=== PATIENT | female | born 1960 | race Caucasian/White ===

== ENCOUNTER 2018-04-26 06:09 | Day surgery (SDC) | payer OTHER ==
[2018-04-26 06:41] VITALS: TEMP 97.5
[2018-04-26] MEDS ORDERED: Propofol 10 mg/ml Inj (20 ML) ONE ×2 (07:57→08:50)
--- NOTE | 2018-04-26 08:40 | CP.SDSHP ---
Same Day Surgery H & P - History Proposed Procedure: EGD+Colonoscopy Pre-Op Diagnosis: Dyspepsia, Screening Colonoscopy - Previous Medical/Surgical History Comments: wnl - Allergies Allergies: Allergies latex Allergy (Verified 10/19/16 11:59) REDNESS Penicillins Allergy (Verified 10/19/16 11:59) RASH tramadol Adverse Reaction (Verified 04/25/18 10:11) DIZZINESS - Physical Exam General Appearance: well Vital Signs: Vital Signs 04/26/18 06:34 Temperature 97.5 F L Pulse Rate 90 Respiratory 18 Rate Blood Pressure 103/74 O2 Sat by Pulse 100 Oximetry Mental Status: Alert & Oriented x3 Neuro: WNL Heart: WNL Lungs: WNL GI: WNL - {Optional Preform as Required} Breast: WNL Abdomen: WNL Rectal: WNL Integument: WNL REGISTERED ACCOUNT ADMINISTRATOR: WNL : WNL Ortho: WNL ENT: WNL - Impression Impression: EGD to assess dyspepsia and screening colonoscopy for malignancy Pt. Evaluated Today:Candidate for Anesthesia & Procedure: Yes - Date & Time Date: 04/26/18 Time: 08:30 Short Stay Discharge - Short Stay Discharge Admitting Diagnosis/Reason for Visit: EPIGASTRIC PAIN, CONSTIPATION, VOMITING, Disposition: HOME/ ROUTINE
[2018-04-26 10:03] VITALS: RESP 15
[2018-04-26 10:35] VITALS: BP 126/70; PULSE 71; O2SAT 98
== END 2018-04-26 10:27 | disposition home or self-care (01) ==
LOC: C.ENDO 06:09
PROVIDERS: ATTEND Internal Medicine Gastroenterology
DX: K29.70 Gastritis, unspecified, without bleeding (principal); K59.01 Slow transit constipation; R11.14 Bilious vomiting; K21.9 Gastro-esophageal reflux disease without esophagitis; K44.9 Diaphragmatic hernia without obstruction or gangrene; K64.8 Other hemorrhoids; K57.90 Diverticulosis of intestine, part unspecified, without perforation or abscess without bleeding; K22.70 Barrett's esophagus without dysplasia
CPT/HCPCS: 43239; 45378; 82948; 88305; 88312; 88313; 88342; J2704

== ENCOUNTER 2018-06-03 11:14 | Emergency (ER) | payer OTHER ==
--- NOTE | 2018-06-03 13:55 | C.PDOC ---
History Of Present Illness 58 y/ female with history of Asthma, DM, High cholesterol and Depression presents to ED with c/o upper abdominal pain radiating to back for 1 year but worsened today. Patient states she had a recent Endoscopy, Colonoscopy and Biopsy, diagnosed with H-Pylori. Patient admits to constipation for 4 days, reports she finished medication given for H-Pylori with no improvement. Patient called Dr. Newsome for no improvement of symptoms and instructed to come to ED. Patient denies fever, chills, blood in stool or any other complaints at this time. Time Seen by Provider: 06/03/18 13:05 Chief Complaint (Nursing): Abdominal Pain History Per: Patient History/Exam Limitations: no limitations Onset/Duration Of Symptoms: Days Current Symptoms Are (Timing): Still Present Location Of Pain/Discomfort: Epigastric Past Medical History Reviewed: Historical Data, Nursing Documentation, Vital Signs Vital Signs: Last Vital Signs Temp 97 F L 06/03/18 11:30 Pulse 98 H 06/03/18 11:30 Resp BP 116/81 06/03/18 11:30 Pulse Ox 96 06/03/18 11:30 - Medical History PMH: Anxiety, Arthritis, Asthma, Cardia Arrhythmia, Depression, Hypercholesterolemia, Hyperlipidemia, Migraine, Osteoporosis Surgical History: No Surg Hx Family History: States: No Known Family Hx - Social History Hx Alcohol Use: No Hx Substance Use: No - Immunization History Hx Tetanus Toxoid Vaccination: Yes Hx Influenza Vaccination: No Hx Pneumococcal Vaccination: No Review Of Systems Except As Marked, All Systems Reviewed And Found Negative. Constitutional: Negative for: Fever, Chills Gastrointestinal: Positive for: Abdominal Pain, Constipation Genitourinary: Negative for: Dysuria, Hematuria Physical Exam - Physical Exam Additional Physical Exam Comments: Constitutional: No acute distress. Head: Normocephalic. Atraumatic. Eyes: PERRL. ENT: Moist mucous membranes. Neck: Supple. Cardiovascular: Regular rate. Radial pulse 2+ bilaterally. Chest: No tenderness. Respiratory: Clear to auscultation bilaterally. GI: Soft. Epigastric Tenderness w/o guarding Back: No CVA tenderness. Musculoskeletal: No tenderness or swelling of extremities. Skin: No rash. Neurologic: Alert, no focal deficit. ED Course And Treatment - Laboratory Results Result Diagrams: 06/03/18 14:00 06/03/18 14:00 O2 Sat by Pulse Oximetry: 96 Medical Decision Making Medical Decision Making: Progress: Spoke to Dr. Newsome instructs patient get abdominal CT with Contrast IMPRESSION: Mild left greater right lower lobe infiltrates/atelectasis. Scattered diverticulosis without CT evidence of acute diverticulitis. Moderate constipation. Additional findings as above. Patient offered admission for IV antibiotics but she refused. Discharged on Levofloxacin. CURB65 score is 0. Advised f/u with PMD, instructed to return to ED for worsening pain, fever, vomiting, or dyspnea. Disposition - Disposition Disposition: HOME/ ROUTINE Disposition Time: 17:16 Condition: STABLE Prescriptions: levoFLOXacin [Levaquin] 750 mg PO DAILY #5 tab Instructions: Pneumonia in Adults Forms: [employer] ([place]) - Clinical Impression Clinical Impression: Infiltrate noted on imaging study - Scribe Statement The provider has reviewed the documentation as recorded by the Scribalessia Bean All medical record entries made by the Scribe were at my direction and personally dictated by me. I have reviewed the chart and agree that the record accurately reflects my personal performance of the history, physical exam, medical decision making, and the department course for this patient. I have also personally directed, reviewed, and agree with the discharge instructions and disposition.
[2018-06-03 14:05] LABS: BASO % 0.3 % (0.0-2.0); EOS % 0.2 % (0.0-4.0); HEMOGLOBIN 13.1 g/dL (11.0-16.0); LYMPH # 2.1 K/uL (1.0-4.3); LYMPH % 18.2 % (20.0-40.0); MEAN CELL VOLUME 83.1 fL (81.0-99.0); MEAN CORPUSCULAR HEMOGLOBIN 26.7 pg (27.0-31.0); MEAN CORPUSCULAR HGB CONC 32.1 g/dL (33.0-37.0); MEAN PLATELET VOLUME 8.2 fL (7.2-11.7); MONO # 0.9 K/uL (0.0-0.8); MONO % 7.6 % (0.0-10.0); NEUT # 8.5 K/uL (1.8-7.0); NEUT % 73.7 % (50.0-75.0); NRBC % 0.1 % (0.0-2.0); RBC 4.89 Mil/uL (3.80-5.20); RED CELL DISTRIBUTION WIDTH 15.8 % (11.5-14.5); WHITE BLOOD COUNT 11.6 K/uL (4.8-10.8)
[2018-06-03 14:17] LABS: SQUAMOUS EPITHIAL 1 /hpf (0-5); URINE BACTERIA RARE (<OCC); URINE BILIRUBIN NEGATIVE (NEGATIVE); URINE BLOOD NEGATIVE (NEGATIVE); URINE CLARITY Clear (Clear); URINE COLOR Yellow (YELLOW); URINE GLUCOSE (UA) NORMAL (Normal); URINE LEUKOCYTE ESTERASE NEG Leu/uL (Negative); URINE PROTEIN NEGATIVE (NEGATIVE); URINE UROBILINOGEN NORMAL mg/dL (0.2-1.0)
[2018-06-03 14:20] LABS: ALB/GLOB RATIO 1.6 (1.0-2.1); ALBUMIN 4.5 g/dL (3.5-5.0); ALT/SGPT 26 U/L (9-52); AST/SGOT 30 U/L (14-36); BLOOD UREA NITROGEN 11 mg/dL (7-17); CALCIUM 9.5 mg/dl (8.6-10.4); GFR NON-AFRICAN AMERICAN > 60; LIPASE 35 U/L (23-300)
[2018-06-03] MEDS ORDERED: Iodixanol 320 MG/ML 100 ML BOTTLE IV ONE (15:28)
--- NOTE | 2018-06-03 16:28 | CT ---
Date of service: 06/03/2018 PROCEDURE: CT Abdomen and Pelvis with contrast HISTORY: abdominal pain, vomiting, constipation COMPARISON: None available. TECHNIQUE: Contrast dose: 100 mL Visipaque IV Radiation dose: Total exam DLP = 1038.05 mGy-cm. This CT exam was performed using one or more of the following dose reduction techniques: Automated exposure control, adjustment of the mA and/or kV according to patient size, and/or use of iterative reconstruction technique. FINDINGS: LOWER THORAX: Mild left greater right lower lobe infiltrates/atelectasis. LIVER: Unremarkable. GALLBLADDER AND BILE DUCTS: Unremarkable. PANCREAS: Unremarkable. SPLEEN: Unremarkable. ADRENALS: Unremarkable. KIDNEYS AND URETERS: The kidneys enhance symmetrically. No hydronephrosis or obstructing calculus identified. VASCULATURE: No aortic aneurysm. BOWEL: Small hiatal hernia. Stomach is nondistended. Lack of oral contrast limits evaluation for bowel pathology. Bowel loops appear within normal limits of caliber without evidence of obstruction. Scattered diverticulosis without CT evidence of acute diverticulitis. Moderate constipation. APPENDIX: The appendix appears within normal limits of caliber. No secondary signs of acute appendicitis. PERITONEUM: No significant free fluid. No definite free air. LYMPH NODES: No bulky adenopathy identified. BLADDER: Unremarkable. REPRODUCTIVE: The uterus is absent, presumably due to hysterectomy. BONES: No acute osseous abnormality is detected. OTHER FINDINGS: Fat containing umbilical hernia. IMPRESSION: Mild left greater right lower lobe infiltrates/atelectasis. Scattered diverticulosis without CT evidence of acute diverticulitis. Moderate constipation. Additional findings as above.
[2018-06-03 18:06] VITALS: BP 129/82; PULSE 82; RESP 17; TEMP 98.6
[2018-06-03 18:08] VITALS: O2SAT 96
== END 2018-06-03 17:55 | disposition home or self-care (01) ==
LOC: C.ER 11:14
DX: R91.8 Other nonspecific abnormal finding of lung field (principal); E11.9 Type 2 diabetes mellitus without complications; E78.00 Pure hypercholesterolemia, unspecified
CPT/HCPCS: 74177; 80053; 81001; 83690; 85025; 87086; 99285; Q9967

== ENCOUNTER 2018-06-06 10:32 | Emergency (ER) | payer OTHER ==
[2018-06-06 10:42] VITALS: BP 125/85; PULSE 112; TEMP 98.4; O2SAT 96
[2018-06-06] MEDS ORDERED: Sodium Chloride 0.9% 1,000 ML IV ONE (11:41)
--- NOTE | 2018-06-06 11:58 | C.PDOC ---
History Of Present Illness 58-year-old female, whose PMHx includes H. Pylori, Diabetes, and Hyperlipidemia, presents to the ED for evaluation of epigastric abdominal pain radiating to her back. Patient was evaluated in the ED on 06/03, was diagnosed with Pneumonia and discharged home with prescription for Zithromax. Patient is on day-4 of the antibiotic course. Patient notes she had an episode of vomiting after coughing last night. She also reports some shortness of breath and constipation. Patient denies fever, chills, and chest pain. Chief Complaint (Nursing): Abdominal Pain History Per: Patient History/Exam Limitations: no limitations Onset/Duration Of Symptoms: Days Current Symptoms Are (Timing): Still Present Location Of Pain/Discomfort: Epigastric Radiation Of Pain To:: Back Quality Of Discomfort: "Pain" Associated Symptoms: Vomiting. denies: Fever, Chills Additional History Per: Patient Abnormal Vaginal Bleeding: No Past Medical History Reviewed: Historical Data, Nursing Documentation, Vital Signs Vital Signs: Last Vital Signs Temp 98.4 F 06/06/18 10:39 Pulse 112 H 06/06/18 10:39 Resp 20 06/06/18 10:39 BP 125/85 06/06/18 10:39 Pulse Ox 96 06/06/18 10:39 - Medical History PMH: Anxiety, Arthritis, Asthma, Cardia Arrhythmia, Depression, Hypercholesterolemia, Hyperlipidemia, Migraine, Osteoporosis Denies: Chronic Kidney Disease Surgical History: No Surg Hx Family History: States: Unknown Family Hx - Social History Hx Alcohol Use: No Hx Substance Use: No - Immunization History Hx Tetanus Toxoid Vaccination: Yes Hx Influenza Vaccination: No Hx Pneumococcal Vaccination: No Review Of Systems Constitutional: Negative for: Fever, Chills Cardiovascular: Negative for: Chest Pain Respiratory: Positive for: Cough, Shortness of Breath Gastrointestinal: Positive for: Vomiting, Abdominal Pain (epigastric ) Physical Exam - Physical Exam Appears: Non-toxic, No Acute Distress Skin: Normal Color, Warm, Dry Head: Atraumatic, Normacephalic Eye(s): bilateral: Normal Inspection Oral Mucosa: Moist Neck: Supple Chest: Symmetrical, No Deformity, No Tenderness Cardiovascular: Rhythm Regular, No Murmur Respiratory: Normal Breath Sounds, No Rales, No Rhonchi, No Wheezing Gastrointestinal/Abdominal: Soft, Tenderness (epigastric ), No Guarding, No Rebound Extremity: Normal ROM, Capillary Refill (less than 2 seconds ) Neurological/Psych: Oriented x3, Normal Speech, Normal Cognition ED Course And Treatment - Laboratory Results Result Diagrams: 06/06/18 12:00 06/06/18 12:00 O2 Sat by Pulse Oximetry: 96 (on RA) Pulse Ox Interpretation: Normal - Other Rad CXR X-Ray: Viewed By Me, Read By Radiologist Interpretation: Date of service: 06/06/2018. PROCEDURE: CHEST RADIOGRAPH, 1 VIEW. HISTORY: Abdominal pain. COMPARISON: None available. FINDINGS: LUNGS: The lungs are hyperinflated and there is peribronchial thickening with chronic changes in both lungs. PLEURA: No pneumothorax or pleural fluid seen. CARDIOVASCULAR: Normal. OSSEOUS STRUCTURES: No significant abnormalities. VISUALIZED UPPER ABDOMEN: Normal. OTHER FINDINGS: None. IMPRESSION: No active pulmonary disease. Medical Decision Making Medical Decision Making: Plan: * bloodwork * CXR * Pepcid IVP * IV Fluids * reassess and disposition Progress: Bloodwork and CXR ordered and reviewed. Pepcid IVP and IV Fluids given. On reassessment, patient is resting comfortably, showing no signs of distress and reports an improvement in her symptoms. Patient's lab and XR results are unremarkable and she is stable for discharge. Patient is informed her epigastric pain may be caused by Zithromax and will be prescribed Pepcid. Patient is advised to follow up with her PMD within 1-2 days for further evaluation. Advised to return to the ED if symptoms persist or worsen. Disposition - Disposition Referrals: [facility] [place] [facility] [place] [facility] [Outside] [facility] [Outside] Disposition: HOME/ ROUTINE Disposition Time: 14:01 Condition: GOOD Prescriptions: Famotidine [Pepcid] 40 mg PO DAILY 10 Days #10 tablet Instructions: Gastritis (DC) Forms: [employer] (Pashto) - Clinical Impression Clinical Impression: Abdominal pain, Gastritis - Scribe Statement The provider has reviewed the documentation as recorded by the Scribe (Flores Garvey) Provider Attestation: All medical record entries made by the Scribe were at my direction and personally dictated by me. I have reviewed the chart and agree that the record accurately reflects my personal performance of the history, physical exam, medical decision making, and the department course for this patient. I have also personally directed, reviewed, and agree with the discharge instructions and disposition.
[2018-06-06 12:03] LABS: BASO % 0.3 % (0.0-2.0); EOS % 0.4 % (0.0-4.0); HEMOGLOBIN 12.5 g/dL (11.0-16.0); LYMPH # 1.8 K/uL (1.0-4.3); LYMPH % 19.6 % (20.0-40.0); MEAN CELL VOLUME 82.8 fL (81.0-99.0); MEAN CORPUSCULAR HGB CONC 32.6 g/dL (33.0-37.0); MEAN PLATELET VOLUME 7.9 fL (7.2-11.7); MONO # 0.7 K/uL (0.0-0.8); MONO % 7.7 % (0.0-10.0); NEUT # 6.6 K/uL (1.8-7.0); NRBC % 0.1 % (0.0-2.0); RBC 4.65 Mil/uL (3.80-5.20); RED CELL DISTRIBUTION WIDTH 15.5 % (11.5-14.5); WHITE BLOOD COUNT 9.1 K/uL (4.8-10.8)
[2018-06-06] MEDS ORDERED: Sodium Chloride 0.9% 1,000 ML ONE (12:12)
[2018-06-06 12:21] LABS: ALB/GLOB RATIO 1.6 (1.0-2.1); ALBUMIN 4.2 g/dL (3.5-5.0); ALT/SGPT 22 U/L (9-52); AST/SGOT 19 U/L (14-36); BLOOD UREA NITROGEN 7 mg/dL (7-17); CALCIUM 9.4 mg/dl (8.6-10.4); GFR NON-AFRICAN AMERICAN > 60; LIPASE 31 U/L (23-300)
[2018-06-06 12:53] VITALS: RESP 18
--- NOTE | 2018-06-06 13:06 | RAD ---
Date of service: 06/06/2018 PROCEDURE: CHEST RADIOGRAPH, 1 VIEW HISTORY: Abdominal pain COMPARISON: None available. FINDINGS: LUNGS: The lungs are hyperinflated and there is peribronchial thickening with chronic changes in both lungs. PLEURA: No pneumothorax or pleural fluid seen. CARDIOVASCULAR: Normal. OSSEOUS STRUCTURES: No significant abnormalities. VISUALIZED UPPER ABDOMEN: Normal. OTHER FINDINGS: None. IMPRESSION: No active pulmonary disease.
--- NOTE | 2018-06-07 15:44 | CARD ---
APPROVED REPORT Date of service: 06/06/2018 EKG Measurement Heart [id number] <Conclusion> Normal sinus rhythm Low voltage QRS Borderline ECG
== END 2018-06-06 14:02 | disposition home or self-care (01) ==
LOC: C.ER 10:32
DX: K29.70 Gastritis, unspecified, without bleeding (principal); R10.13 Epigastric pain
CPT/HCPCS: 71045; 80053; 83690; 85025; 93005; 96361; 96374; 99285; J7030